=== PATIENT | male | born 1980 | race Asian ===

== ENCOUNTER 2020-03-26 13:50 | Emergency (ER) | payer OTHER ==
[~2020-03-26] VITALS: Ht 170.2 cm; Wt 86.4 kg
[2020-03-26 14:08] VITALS: TEMP 101.9
[2020-03-26 14:43] LABS: ALBUMIN 4.1 gm/dL (3.5-5.0); BILIRUBIN,TOTAL 0.6 mg/dL (0.0-1.0); CALCIUM 7.1 mg/dL (8.4-10.2); CREATININE, serum 0.97 (0.66-1.25); POTASSIUM 3.8 mmol/L (3.4-5.0); TOTAL PROTEIN 7.1 gm/dL (6.4-8.2)
[2020-03-26 14:52] LABS: BASO % 0.2 % (0.0-2.0); EOS % 0.2 % (0-4.0); GRAN # 3.2 (1.4-6.5); GRAN % 66.3 % (42.2-75.2); HEMATOCRIT 41.4 % (42.0-52.0); HEMOGLOBIN 14.2 g/dl (13.5-18.0); LYMPH # 1.1 (1.2-3.4); LYMPH % 21.9 % (20.0-51.0); MEAN CELL VOLUME 87 fl (80.0-100.0); MEAN CORPUSCULAR HEMOGLOBIN 30 pg (27.0-31.0); MEAN CORPUSCULAR HGB CONC 34 g/dl (33.0-37.0); MEAN PLATELET VOLUME 9.4 fl (7.4-10.4); MONO # 0.5 (0.1-0.6); MONO % 10.6 % (1.7-9.3); PLATELET COUNT 186 K/mm3 (130-400); RED BLOOD COUNT 4.78 M/mm3 (4.20-5.60); REDCELL DISTRIBUTION WIDTH-CV 11.6 % (11.5-14.5)
[2020-03-26 15:59] LABS: INR 1.2 (0.8-3.0); PROTHROMBIN TIME 12.9 SECONDS (9.7-12.8)
[2020-03-26] MEDS ORDERED: OMNICEF 300MG300 MG PO (16:38)
[2020-03-26] MEDS ORDERED: DECADRON 4MG TAB4 MG PO (16:38)
[2020-03-26] MEDS ORDERED: ZITHROMAX500 M2 PO (16:38)
[2020-03-26] MEDS ORDERED: PROAIR HFA0.09 MG/AC IH (16:38)
[2020-03-26 16:49] VITALS: BP 120/60; PULSE 98
== END 2020-03-26 16:49 | disposition home or self-care (01) ==
LOC: COL.ER 13:50
PROVIDERS: Family Medicine; Nurse Practitioner Primary Care
DX: U07.1 COVID-19 (principal); J12.89 Other viral pneumonia
CPT/HCPCS: J0696; J1100; J1885; J2405; J7030